=== PATIENT | male | born 1960 | race Hispanic/Latino ===

== ENCOUNTER 2016-11-28 13:57 | Day surgery (SDC) | payer OTHER ==
[~2016-11-28] VITALS: Ht 171.4 cm; Wt 73.5 kg
[~2016-11-28 13:57] MED LIST: AZELASTINE205.5 MCG/ BOTH NARES; CHOLESTYRAMINE378 GM PO; CIPRO250 MG PO; CYANOCOBALAM1000 MCG PO; DULOXETINE HCL30 MG PO; DURAGESIC50 MCG TD; GLEEVEC400 MG PO; Gleevec PO; Glucophage PO; HYCODAN SYRUP480 ML PO; IMATINIB MESYL400 MG PO; INVANZ1 GM IV; KENALOG,ARISTOC15 G2; LISINOPRIL20 MG; LISINOPRIL20 MG PO; METFORMIN HCL500 MG PO; NICODERM CQ1 EAC1 TD; NICODERM CQ1 EACH TD; NICOTINE PATCH1 EAC2 TD; PERCOCET 5/31 TABLET PO; PREVACID30 MG PO; Skelaxin PO; TAMSULOSIN HCL0.4 MG PO; Ultram PO; VALIUM2 MG PO; VENLAFAXINE HCL75 M3 PO; VITAMIN D22000 UNIT PO; ZESTRIL,PRINIVI20 MG PO; Zestril,Prinivil PO
[2016-11-28 14:48] LABS: POINT-OF-CARE METER ID UU14174212
== END 2016-11-28 16:20 | disposition home or self-care (01) ==
LOC: PAIN 13:57 → SDC 14:45 → PAIN 16:20
PROVIDERS: Anesthesiology Pain Medicine
DX: M47.812 Spondylosis without myelopathy or radiculopathy, cervical region (principal); F41.9 Anxiety disorder, unspecified; M53.3 Sacrococcygeal disorders, not elsewhere classified; M79.1 Myalgia; M54.5 Low back pain; M54.2 Cervicalgia; I10 Essential (primary) hypertension; E11.9 Type 2 diabetes mellitus without complications; F17.200 Nicotine dependence, unspecified, uncomplicated; Z79.84 Long term (current) use of oral hypoglycemic drugs
CPT/HCPCS: 82948; J1030; J2250; J3010

== ENCOUNTER 2016-12-05 13:50 | Day surgery (SDC) | payer OTHER ==
[~2016-12-05] VITALS: Ht 170.2 cm; Wt 73.5 kg
[2016-12-05 14:33] LABS: POINT-OF-CARE METER ID UU14174212
== END 2016-12-05 15:03 | disposition home or self-care (01) ==
LOC: PAIN 13:50 → SDC 14:45 → PAIN 14:45
PROVIDERS: Anesthesiology Pain Medicine
DX: M54.2 Cervicalgia (principal); M54.16 Radiculopathy, lumbar region; M53.3 Sacrococcygeal disorders, not elsewhere classified; M79.1 Myalgia; M50.21 Other cervical disc displacement, high cervical region; I10 Essential (primary) hypertension; E11.9 Type 2 diabetes mellitus without complications; Z86.73 Personal history of transient ischemic attack (TIA), and cerebral infarction without residual deficits; Z79.84 Long term (current) use of oral hypoglycemic drugs; Z79.891 Long term (current) use of opiate analgesic; F17.210 Nicotine dependence, cigarettes, uncomplicated
CPT/HCPCS: 82948; J1030; J2250; J3010; S0020

== ENCOUNTER 2017-03-20 09:56 | Day surgery (SDC) | payer OTHER ==
[~2017-03-20] VITALS: Ht 170.2 cm; Wt 73.4 kg
[2017-03-20 10:35] LABS: POINT-OF-CARE METER ID UU14174212
== END 2017-03-20 11:16 | disposition home or self-care (01) ==
LOC: PAIN 09:56 → SDC 10:30 → PAIN 11:16
PROVIDERS: Anesthesiology Pain Medicine
DX: M47.812 Spondylosis without myelopathy or radiculopathy, cervical region (principal); M54.2 Cervicalgia; G89.29 Other chronic pain; M47.26 Other spondylosis with radiculopathy, lumbar region; M79.1 Myalgia; M53.3 Sacrococcygeal disorders, not elsewhere classified; I10 Essential (primary) hypertension; E11.9 Type 2 diabetes mellitus without complications; Z85.028 Personal history of other malignant neoplasm of stomach; F17.210 Nicotine dependence, cigarettes, uncomplicated; Z79.84 Long term (current) use of oral hypoglycemic drugs; Z79.891 Long term (current) use of opiate analgesic; Z86.73 Personal history of transient ischemic attack (TIA), and cerebral infarction without residual deficits
CPT/HCPCS: 82948; J1030; J2250; J3010; S0020

== ENCOUNTER 2017-04-03 14:19 | Day surgery (SDC) | payer OTHER ==
[~2017-04-03] VITALS: Ht 170.2 cm; Wt 71.6 kg
[2017-04-03 15:05] LABS: POINT-OF-CARE METER ID UU14174212
== END 2017-04-03 16:43 | disposition home or self-care (01) ==
LOC: PAIN 14:19 → SDC 14:45 → PAIN 16:43
PROVIDERS: Anesthesiology Pain Medicine
DX: M47.812 Spondylosis without myelopathy or radiculopathy, cervical region (principal); M54.2 Cervicalgia; G89.29 Other chronic pain; M54.16 Radiculopathy, lumbar region; M79.1 Myalgia; M53.3 Sacrococcygeal disorders, not elsewhere classified; I10 Essential (primary) hypertension; E11.9 Type 2 diabetes mellitus without complications; F17.210 Nicotine dependence, cigarettes, uncomplicated; Z86.73 Personal history of transient ischemic attack (TIA), and cerebral infarction without residual deficits
CPT/HCPCS: 82948; J1030; J2250; J3010; S0020

== ENCOUNTER 2017-09-25 11:18 | Day surgery (SDC) | payer OTHER ==
[~2017-09-25] VITALS: Ht 170.2 cm; Wt 74.4 kg
[~2017-09-25 11:18] MED LIST changes: +GLEEVEC100 MG PO; +GLUCOPHAGE500 MG PO; -VENLAFAXINE HCL75 M3 PO; +VENLAFAXINE225 MG PO; +ZANAFLEX2 MG PO; +ZESTRIL20 MG PO
[2017-09-25 12:36] LABS: CHLORIDE 111 MEQ/L (99-109); CREATININE 0.9 MG/DL (0.6-1.3); GFR ESTIMATE (CALCULATED) > 59 mL/min/ (58.99-99999); GLUCOSE 116 mg/dL (70-99); POTASSIUM 3.9 MEQ/L (3.7-5.4); SODIUM 141 MEQ/L (136-147); UREA NITROGEN (BUN) 10 mg/dL (9-23)
== END 2017-09-25 13:35 | disposition home or self-care (01) ==
LOC: PAIN 11:18 → SDC 11:45 → PAIN 11:45
PROVIDERS: Anesthesiology; Anesthesiology Pain Medicine
DX: M54.16 Radiculopathy, lumbar region (principal); M54.5 Low back pain; M53.3 Sacrococcygeal disorders, not elsewhere classified; M79.1 Myalgia; M47.812 Spondylosis without myelopathy or radiculopathy, cervical region; I10 Essential (primary) hypertension; E11.9 Type 2 diabetes mellitus without complications; F17.200 Nicotine dependence, unspecified, uncomplicated; Z86.73 Personal history of transient ischemic attack (TIA), and cerebral infarction without residual deficits; Z79.84 Long term (current) use of oral hypoglycemic drugs; Z79.891 Long term (current) use of opiate analgesic
CPT/HCPCS: 80048; 82948; 93005; J1100; J2250

== ENCOUNTER 2017-10-23 11:11 | Day surgery (SDC) | payer OTHER ==
[~2017-10-23] VITALS: Ht 170.2 cm; Wt 74.4 kg
== END 2017-10-23 12:21 | disposition home or self-care (01) ==
LOC: PAIN 11:11 → SDC 11:45 → PAIN 12:21
PROVIDERS: Anesthesiology Pain Medicine
PROC: 3E0S33Z Introduction of Anti-inflammatory into Epidural Space, Percutaneous Approach (ICD-10-PCS; principal; 2017-10-23)
PROC: B01B1ZZ Fluoroscopy of Spinal Cord using Low Osmolar Contrast (ICD-10-PCS; principal; 2017-10-23)
DX: M54.16 Radiculopathy, lumbar region (principal); M47.812 Spondylosis without myelopathy or radiculopathy, cervical region; M79.1 Myalgia; E11.42 Type 2 diabetes mellitus with diabetic polyneuropathy; F17.200 Nicotine dependence, unspecified, uncomplicated; M53.3 Sacrococcygeal disorders, not elsewhere classified; I10 Essential (primary) hypertension; Z85.028 Personal history of other malignant neoplasm of stomach; Z98.84 Bariatric surgery status
CPT/HCPCS: 82948; J1100; J2250

== ENCOUNTER 2018-01-03 20:43 | Inpatient (IN) | payer OTHER ==
[~2018-01-03] VITALS: Ht 170.2 cm; Wt 65.3 kg
[~2018-01-03 20:43] MED LIST changes: +VENLAFAXINE HCL75 M1 PO; -VENLAFAXINE225 MG PO
[2018-01-03 21:18] LABS: HEMATOCRIT 40.7 % (38.0-50.0); HEMOGLOBIN 14.4 G/DL (12.5-16.6); MCH 33.9 PG (29.0-34.0); MCHC 35.4 G/DL (30.0-36.0); MCV 95.8 FL (86-99); PLATELET COUNT 186 K/uL (156-360); RBC DIS.WIDTH-CV 13.6 % (11.8-14.6); RBC DIS.WIDTH-SD 48.2 % (39-53); RED BLOOD COUNT 4.25 M/uL (4.00-5.50); WHITE BLOOD COUNT 13.2 K/uL (4.1-10.2)
[2018-01-03 21:46] LABS: ALBUMIN 4.9 G/DL (3.2-4.8); CHLORIDE 105 MEQ/L (99-109); POTASSIUM 3.4 MEQ/L (3.7-5.4); SODIUM 142 MEQ/L (136-147); TOTAL BILIRUBIN 0.7 MG/DL (0.0-1.0)
[2018-01-03 21:52] LABS: ALKALINE PHOSPHATASE 51 IU/L (3-129); ALT (GPT) 14 IU/L (3-49); AST (GOT) 24 IU/L (2-34); CREATININE 0.8 MG/DL (0.6-1.3); GFR ESTIMATE (CALCULATED) > 59 mL/min/ (58.99-99999); GLUCOSE 133 mg/dL (70-99); LIPASE 20 U/L (1.0-51.0); UREA NITROGEN (BUN) 8 mg/dL (9-23)
[2018-01-03 22:31] LABS: APPEARANCE SL.HAZY ((CLEAR)); BILIRUBIN NEGATIVE; BLOOD NEGATIVE; COLOR YELLOW ((YELLOW)); GLUCOSE (STRIP) NEGATIVE; KETONES 5; LEUKOCYTES NEGATIVE; NITRITE NEGATIVE; PROTEIN (STRIP) 30; UROBILINOGEN 0.2 MG/DL (0.2-1.0)
[2018-01-03 22:46] LABS: BACTERIA RARE /HPF; EPITHELIAL CELLS RARE /HPF; HYALINE CASTS 0-5 /LPF; MUCUS 2+ /LPF; UCUL ADDED? NO; WHITE BLOOD CELLS 0-5 /HPF (0-5)
[2018-01-04 05:06] VITALS: BP 99/58
[2018-01-04] MEDS ORDERED: FLOMAX0.4 MG PO (07:50)
[2018-01-04 08:20] VITALS: BP 116/70
[2018-01-04 09:35] LABS: ALBUMIN 4.3 G/DL (3.2-4.8); ALKALINE PHOSPHATASE 44 IU/L (3-129); ALT (GPT) 12 IU/L (3-49); AST (GOT) 21 IU/L (2-34); DIRECT BILIRUBIN 0.2 mg/dL (0.0-0.3); MAGNESIUM 1.7 mg/dl (1.3-2.7); TOTAL BILIRUBIN 0.8 MG/DL (0.0-1.0)
[2018-01-04 09:40] LABS: TOTAL PROTEIN 5.9 G/DL (6.4-8.3)
[2018-01-04 11:56] VITALS: BP 120/76
[2018-01-04] MEDS ORDERED: VENLAFAXINE HC150 M1 PO (12:28)
[2018-01-04 15:55] VITALS: BP 130/71
[2018-01-04 20:16] VITALS: BP 128/68
[2018-01-04 23:37] VITALS: BP 125/69
[2018-01-05 04:52] VITALS: BP 120/68
[2018-01-05 08:05] LABS: BASOPHIL (%) 0.5 % (0-1); EOSINOPHIL (%) 1.2 % (0-5); EOSINOPHIL COUNT 0.1 K/uL (0-0.3); HEMATOCRIT 33.3 % (38.0-50.0); LYMPHOCYTE (%) 30.1 % (15-42); LYMPHOCYTE COUNT 1.3 K/uL (1.0-2.8); MCH 32.9 PG (29.0-34.0); MCHC 34.2 G/DL (30.0-36.0); MCV 96.2 FL (86-99); MONOCYTE (%) 8.6 % (3-12); MONOCYTE COUNT 0.4 K/uL (0-0.8); NEUTROPHIL (%) 59.6 % (45-76); NEUTROPHIL COUNT 2.6 K/uL (1.8-6.4); PLATELET COUNT 152 K/uL (156-360); RBC DIS.WIDTH-CV 13.9 % (11.8-14.6); RBC DIS.WIDTH-SD 49.3 % (39-53); RED BLOOD COUNT 3.46 M/uL (4.00-5.50); WHITE BLOOD COUNT 4.3 K/uL (4.1-10.2)
[2018-01-05 08:08] LABS: ALBUMIN 3.7 G/DL (3.2-4.8); ALKALINE PHOSPHATASE 32 IU/L (3-129); ALT (GPT) 11 IU/L (3-49); AST (GOT) 18 IU/L (2-34); CHLORIDE 110 MEQ/L (99-109); CREATININE 0.7 MG/DL (0.6-1.3); GFR ESTIMATE (CALCULATED) > 59 mL/min/ (58.99-99999); GLUCOSE 112 mg/dL (70-99); HEMOGLOBIN 11.4 G/DL (12.5-16.6); SODIUM 144 MEQ/L (136-147); TOTAL PROTEIN 5.2 G/DL (6.4-8.3); UREA NITROGEN (BUN) 8 mg/dL (9-23)
[2018-01-05 08:26] VITALS: BP 132/67
[2018-01-05 11:54] VITALS: BP 135/75
[2018-01-05 15:30] LABS: C DIFF TOXIN NEGATIVE (NEGATIVE)
[2018-01-05 16:56] VITALS: BP 141/71
[2018-01-05 20:04] VITALS: BP 132/84
[2018-01-06 03:59] VITALS: BP 129/59
[2018-01-06 08:00] LABS: BASOPHIL (%) 0.3 % (0-1); EOSINOPHIL COUNT 0.1 K/uL (0-0.3); HEMATOCRIT 33.2 % (38.0-50.0); HEMOGLOBIN 11.5 G/DL (12.5-16.6); LYMPHOCYTE (%) 33.3 % (15-42); LYMPHOCYTE COUNT 1.2 K/uL (1.0-2.8); MCHC 34.6 G/DL (30.0-36.0); MCV 95.4 FL (86-99); MONOCYTE (%) 12.9 % (3-12); MONOCYTE COUNT 0.5 K/uL (0-0.8); NEUTROPHIL (%) 51.5 % (45-76); NEUTROPHIL COUNT 1.8 K/uL (1.8-6.4); PLATELET COUNT 166 K/uL (156-360); RBC DIS.WIDTH-CV 13.9 % (11.8-14.6); RBC DIS.WIDTH-SD 48.8 % (39-53); RED BLOOD COUNT 3.48 M/uL (4.00-5.50); WHITE BLOOD COUNT 3.5 K/uL (4.1-10.2)
[2018-01-06 08:13] VITALS: BP 131/74
[2018-01-06 08:27] LABS: CHLORIDE 112 MEQ/L (99-109); CREATININE 0.7 MG/DL (0.6-1.3); GFR ESTIMATE (CALCULATED) > 59 mL/min/ (58.99-99999); GLUCOSE 134 mg/dL (70-99); POTASSIUM 4.2 MEQ/L (3.7-5.4); SODIUM 142 MEQ/L (136-147); UREA NITROGEN (BUN) 3 mg/dL (9-23)
[2018-01-06 15:59] VITALS: BP 182/71
[2018-01-06 20:42] VITALS: BP 168/79
[2018-01-06 23:46] VITALS: BP 129/78
[2018-01-07 05:04] VITALS: BP 130/71
[2018-01-07 06:21] LABS: BASOPHIL (%) 0.3 % (0-1); EOSINOPHIL COUNT 0.1 K/uL (0-0.3); HEMATOCRIT 33.5 % (38.0-50.0); HEMOGLOBIN 11.6 G/DL (12.5-16.6); IMMATURE GRANULOCYTE (%) 0.3 % (0.0-0.7); LYMPHOCYTE (%) 31.3 % (15-42); LYMPHOCYTE COUNT 1.3 K/uL (1.0-2.8); MCH 32.9 PG (29.0-34.0); MCHC 34.6 G/DL (30.0-36.0); MCV 94.9 FL (86-99); MONOCYTE COUNT 0.4 K/uL (0-0.8); NEUTROPHIL (%) 55.1 % (45-76); NEUTROPHIL COUNT 2.2 K/uL (1.8-6.4); PLATELET COUNT 175 K/uL (156-360); RBC DIS.WIDTH-CV 13.4 % (11.8-14.6); RBC DIS.WIDTH-SD 46.9 % (39-53); RED BLOOD COUNT 3.53 M/uL (4.00-5.50)
[2018-01-07 06:50] LABS: CHLORIDE 110 MEQ/L (99-109); CREATININE 0.7 MG/DL (0.6-1.3); GFR ESTIMATE (CALCULATED) > 59 mL/min/ (58.99-99999); GLUCOSE 124 mg/dL (70-99); POTASSIUM 4.4 MEQ/L (3.7-5.4); SODIUM 141 MEQ/L (136-147); UREA NITROGEN (BUN) 3 mg/dL (9-23)
[2018-01-07 07:39] VITALS: BP 128/76
[2018-01-07 11:14] VITALS: BP 129/80
[2018-01-07 12:06] LABS: HEMOGLOBIN A1c (GLYCOHEMOGLOB) 5.5 % (Below 5.7)
[2018-01-11] MEDS ORDERED: METFORMIN HCL500 MG PO (11:44)
== END 2018-01-07 15:32 | disposition home or self-care (01) | DRG 389 ==
LOC: EME 20:43 → EDOF 01-04 03:00 → 3EAST 01-04 03:00 → ENRESERV 01-04 03:03 → 3EAST 01-04 04:29
PROVIDERS: Hospitalist
DX: K56.600 Partial intestinal obstruction, unspecified as to cause (principal); K52.89 Other specified noninfective gastroenteritis and colitis; K52.0 Gastroenteritis and colitis due to radiation; Y84.2 Radiological procedure and radiotherapy as the cause of abnormal reaction of the patient, or of later complication, without mention of misadventure at the time of the procedure; E87.6 Hypokalemia; E11.9 Type 2 diabetes mellitus without complications; N40.0 Benign prostatic hyperplasia without lower urinary tract symptoms; I10 Essential (primary) hypertension; F41.9 Anxiety disorder, unspecified; F32.9 Major depressive disorder, single episode, unspecified; G89.29 Other chronic pain; M54.5 Low back pain; M54.2 Cervicalgia; F17.210 Nicotine dependence, cigarettes, uncomplicated; Z90.49 Acquired absence of other specified parts of digestive tract; Z85.00 Personal history of malignant neoplasm of unspecified digestive organ
CPT/HCPCS: 74018; 74019; 74177; 80048; 80053; 80076; 81003; 82948; 83036; 83605; 83690; 83735; 85025; 85027; 87040; 87493; 93005; 99281; 99284; J1644; J2060; J2270; J7030

== ENCOUNTER 2018-01-15 11:11 | Day surgery (SDC) | payer OTHER ==
[~2018-01-15] VITALS: Ht 170.2 cm; Wt 69.8 kg
[~2018-01-15 11:11] MED LIST changes: +FLOMAX0.4 MG PO; +VENLAFAXINE HC150 M1 PO
== END 2018-01-15 12:15 | disposition home or self-care (01) ==
LOC: PAIN 11:11 → SDC 11:45 → PAIN 11:45
PROVIDERS: Anesthesiology Pain Medicine
PROC: 3E0R33Z Introduction of Anti-inflammatory into Spinal Canal, Percutaneous Approach (ICD-10-PCS; principal; 2018-01-15)
PROC: B01B1ZZ Fluoroscopy of Spinal Cord using Low Osmolar Contrast (ICD-10-PCS; principal; 2018-01-15)
PROC: 3E0R3BZ Introduction of Anesthetic Agent into Spinal Canal, Percutaneous Approach (ICD-10-PCS; principal; 2018-01-15)
DX: M50.13 Cervical disc disorder with radiculopathy, cervicothoracic region (principal); M50.120 Mid-cervical disc disorder, unspecified level; M53.3 Sacrococcygeal disorders, not elsewhere classified; I10 Essential (primary) hypertension; I45.10 Unspecified right bundle-branch block; E11.40 Type 2 diabetes mellitus with diabetic neuropathy, unspecified; F17.200 Nicotine dependence, unspecified, uncomplicated; Z79.84 Long term (current) use of oral hypoglycemic drugs; Z79.891 Long term (current) use of opiate analgesic; Z86.73 Personal history of transient ischemic attack (TIA), and cerebral infarction without residual deficits
CPT/HCPCS: 82948; J1100; J2250

== ENCOUNTER 2018-02-18 09:40 | Day surgery (SDC) | payer OTHER ==
[~2018-02-18] VITALS: Ht 170.2 cm; Wt 74.8 kg
== END 2018-02-18 11:40 | disposition home or self-care (01) ==
LOC: PAIN 09:40
PROVIDERS: Anesthesiology Pain Medicine
PROC: 3E0S33Z Introduction of Anti-inflammatory into Epidural Space, Percutaneous Approach (ICD-10-PCS; principal; 2018-02-18)
PROC: B01B0ZZ Fluoroscopy of Spinal Cord using High Osmolar Contrast (ICD-10-PCS; principal; 2018-02-18)
DX: M54.12 Radiculopathy, cervical region (principal); M50.120 Mid-cervical disc disorder, unspecified level; M79.1 Myalgia; E11.40 Type 2 diabetes mellitus with diabetic neuropathy, unspecified; F17.200 Nicotine dependence, unspecified, uncomplicated; I10 Essential (primary) hypertension; Z85.028 Personal history of other malignant neoplasm of stomach
CPT/HCPCS: 82948; J1100; J2250; J3010

== ENCOUNTER 2018-02-21 13:39 | Emergency (ER) | payer OTHER ==
[~2018-02-21] VITALS: Ht 175.3 cm; Wt 70.9 kg
[2018-02-21] MEDS ORDERED: MOTRIN600 MG PO (17:04)
[2018-02-21] MEDS ORDERED: LIDODERM 5% P1 PATCH TD (17:04)
[2018-02-21 17:31] VITALS: BP 148/97
== END 2018-02-21 17:33 | disposition home or self-care (01) ==
LOC: EME 13:39
DX: M54.2 Cervicalgia (principal); M54.5 Low back pain; M25.511 Pain in right shoulder; M25.512 Pain in left shoulder; V49.40XA Driver injured in collision with unspecified motor vehicles in traffic accident, initial encounter; Y92.488 Other paved roadways as the place of occurrence of the external cause; G89.29 Other chronic pain; R10.9 Unspecified abdominal pain; Z92.21 Personal history of antineoplastic chemotherapy; I10 Essential (primary) hypertension; E11.9 Type 2 diabetes mellitus without complications; Z79.84 Long term (current) use of oral hypoglycemic drugs; F17.200 Nicotine dependence, unspecified, uncomplicated
CPT/HCPCS: 70450; 72125; 72128; 72131; 99281; 99284; J1885